=== PATIENT | female | born 2000 | race Caucasian/White ===

== ENCOUNTER 2021-08-15 14:34 | Emergency (ER) | payer BC, SELFPAY ==
--- NOTE | ~2021-08-15 | XR_ITS ---
EXAMINATION: XR chest 2V DATE: 08/15/2021 15:05 INDICATION: Cough and shortness of breath TECHNIQUE: PA and lateral views of the chest were obtained. COMPARISON: None FINDINGS: The lungs are clear with no focal airspace opacities, pulmonary edema, pleural effusion or pneumothor ax. The cardiomediastinal silhouette is normal. Visualized bones and soft tissues are unremarkable. IMPRESSION: 1. No acute cardiopulmonary disease. Reviewed, dictated and finalized at location A. ER OPERATOR
[2021-08-15 14:45] VITALS: BP 122/64; PULSE 93; RESP 20; TEMP 36.7; O2SAT 100
--- NOTE | 2021-08-15 14:46 | ED.URI ---
HPI - URI/Sore Throat General Chief Complaint: Upper Respiratory Infection Stated Complaint: Lung pain Source: patient Mode of arrival: ambulatory Limitations: no limitations History of Present Illness HPI Narrative: 21-year-old female presented for complaint of cough and shortness of breath for 5 days. Endorses hx asthma, using inhaler and nebulizer with minimal relief. Cough is nonproductive, body aches, sinus pressure, and headache. Denies n/v/d/f/c. She vapes, has reduced frequency. Vaccinated for covid, needs booster. Denies sick contacts. MD elicited complaint: cough Related Data Home Medications Medication Instructions Recorded Confirmed albuterol sulfate 0.63 mg INHALATION PRN PRN 08/15/21 08/15/21 Allergies Allergy/AdvReac Type Severity Reaction Status Date / Time No Known Allergies Allergy Verified 08/15/21 14:47 Review of Systems Review of Systems: CONSTITUTIONAL: Endorses malaise, denies chills, sweats, fever. EYES: Denies visual changes, redness, or discharge. ENT: Reports rhinorrhea, congestion, sinus pain, denies otalgia and sore throat. CARDIOVASCULAR: Denies chest pain, palpitations, or edema. RESPIRATORY: Reports cough, post nasal drainage, dyspnea. GASTROINTESTINAL: Endorses diarrhea; Denies abdominal pain, nausea, vomiting SKIN: Denies rash or itching. MUSCULOSKELETAL: Endorses myalgia. NEUROLOGIC: Denies headache. Exam Narrative: GENERAL: Ill-appearing, nontoxic no acute distress. HEAD: Normocephalic EYES: PERRLA, conjunctivae clear ENT: Mucous membranes moist. TM pearly bolden with dull light reflex bilaterally; no tragal tenderness. Oropharynx erythematous without lesions, no drooling, no hoarseness, no trismus, uvula midline. NECK: Supple. No lymphadenopathy CHEST: Clear to auscultation, breath sounds equal. No wheezing, rhonchi, rales, or stridor. No respiratory distress, speaks in full sentences. HEART: Regular rate and rhythm. No murmur heard. SKIN: Warm, dry, no rash. NEURO: Alert and oriented x3. PSYCH: Normal mood and affect Course Course Emergency Course: covid neg Patient is aware of diagnosis, understands and agrees to treatment plan. Anticipatory guidance given. Patient agrees to follow-up as directed and is aware of reasons to seek care at the emergency department. Portions of this record may have been created with voice recognition software Level of Care: Express Care Visit Vital Signs Vital signs: Vital Signs Temperature 98.1 F 08/15/21 14:45 Pulse Rate 93 08/15/21 14:45 Respiratory Rate 20 08/15/21 14:45 Blood Pressure 122/64 08/15/21 14:45 Pulse Oximetry 100 08/15/21 14:45 Temperature 98.1 F 08/15/21 14:45 Pulse Rate 93 08/15/21 14:45 Respiratory Rate 20 08/15/21 14:45 Blood Pressure 122/64 08/15/21 14:45 Pulse Oximetry 100 08/15/21 14:45 reviewed MDM - URI/Sore Throat Differential Diagnosis Differential diagnosis: Likely upper respiratory infection and viral infection Lab Data Labs: Lab Results 08/15/21 Range/Units 14:50 POC SARS CoV-2 Ag Negative (Negative) Imaging Data Attestation: I personally reviewed and interpreted this imaging study as follows: My impression: No acute cardiopulmonary disease. Radiologist's impression: EXAMINATION: XR chest 2V DATE: 08/15/2021 15:05 INDICATION: Cough and shortness of breath TECHNIQUE: PA and lateral views of the chest were obtained. COMPARISON: None FINDINGS: The lungs are clear with no focal airspace opacities, pulmonary edema, pleural effusion or pneumothorax. The cardiomediastinal silhouette is normal. Visualized bones and soft tissues are unremarkable. IMPRESSION: 1. No acute cardiopulmonary disease. Discharge Plan Discharge Clinical Impression: Viral infection, Cough Patient Disposition: Home, Self-Care Condition: Stable Instructions: Antibiotic Form Additional Instructions: Your Rapid COVID test was negative today. If you are symptomat
== END 2021-08-15 15:25 | disposition home or self-care (01) ==
PROVIDERS: Emergency Provider Nurse Practitioner Family
DX: B34.9 Viral infection, unspecified (principal); Z20.822 Contact with and (suspected) exposure to COVID-19
CPT/HCPCS: 71046; 87426; 99213; C9803; G0463

== ENCOUNTER 2021-10-31 22:58 | Emergency (ER) | payer BC, SELFPAY ==
--- NOTE | ~2021-10-31 | XR_ITS ---
EXAMINATION: XR chest 2V DATE: 11/01/2021 01:08 INDICATION: Shortness of breath. TECHNIQUE: Frontal and lateral views of the chest were obtained. COMPARISON: Chest 2 views 08/15/2021 FINDINGS: The chest demonstrates clear lungs without pneumonia, pleural effusion, or pneumothorax. Th e heart size is normal. IMPRESSION: 1. No acute cardiopulmonary disease. Reviewed, dictated and finalized at location A.
[2021-10-31 22:59] VITALS: BP 114/101; PULSE 82; RESP 20; O2SAT 100
--- NOTE | 2021-10-31 23:03 | ECG_ITS ---
Measurements Intervals [place] Rate: 68 P: 23 TN: 126 QRS: 55 QRSD: 89 T: 34 QT: 383 QTc: 409 Interpretive Statements SINUS RHYTHM WITH SINUS ARRHYTHMIA NO PREVIOUS ECG AVAILABLE FOR COMPARISON Electronically Signed On 11-01-2021 8:48:06 CDT by Kennedy Fowler M.D.
[2021-10-31 23:31] VITALS: BP 112/89; PULSE 84; RESP 18; O2SAT 98
[2021-10-31 23:34] VITALS: O2SAT 96
[2021-10-31] MEDS: methylPREDNISolone SOD SUCC 125 MG VIAL IV PUSH (23:42)
[2021-10-31 23:53] LABS: Basophils Percent Auto 0.3 % (0.2-1.2); Eosinophils Percent Auto 9.8 % (0-4.4); Hematocrit 38.9 % (37.0-47.0); Hemoglobin 12.8 g/dL (12.0-15.0); Immature Granulocyte Absolute 0.03 K/mm3 (0.00-0.031); Immature Granulocyte Percent A 0.3 % (0-0.5); Lymphocytes Absolute Auto 1.72 K/mm3 (0.9-3.2); Lymphocytes Percent Auto 17.5 % (18.3-44.2); Mean Corpuscular HGB Conc 32.9 g/dl (32-36); Mean Corpuscular Hemoglobin 31.8 pg (26-34); Mean Corpuscular Volume 96.8 fl (80-100); Mean Platelet Volume 11.4 fl (7.4-10.4); Monocytes Absolute Auto 0.9 K/mm3 (0.1-0.6); Monocytes Percent Auto 9.2 % (2.6-8.5); Neutrophils Absolute Auto 6.2 K/mm3 (1.3-6.7); Neutrophils Percent Auto 62.9 % (45.5-73.1); Platelet Count Result 203 k/mm3 (150-375); Red Blood Count 4.02 M/mm3 (4.2-5.4); Red Cell Distribution Width 12.7 % (11.5-14.5); White Blood Count 9.8 K/mm3 (4.5-10.0)
[2021-10-31] MEDS: ALBUTEROL SULFATE NEB 2.5 MG/0.5 ML INH 15 MG INHALATION (23:57)
[2021-10-31] MEDS: IPRATROPIUM BR 0.02% INH SOLN 0.5 MG/2.5 ML VIAL 1.5 MG INHALATION (23:58)
[2021-10-31 23:59] VITALS: PULSE 71; RESP 12
[2021-11-01] LABS: Alanine Aminotransferase 15 U/L (4-35); Albumin Level 4.6 g/dL (3.5-5.1); Alkaline Phosphatase 67 U/L (38-126); Anion Gap 8 mmol/L (8-16); Aspartate Amino Transferase 25 U/L (14-36); Bilirubin,Total 0.3 mg/dL (0.2-1.3); Blood Urea Nitrogen 5 mg/dL (7-17); Carbon Dioxide 22 mmol/L (22-30); Chloride 109 mmol/L (98-107); Estimated CRCL calculation 85 ml/min; Estimated Glomerular Filt Rate > 60; Glucose 90 mg/dL (65-110); Potassium 3.5 mmol/L (3.4-5.0); Sodium 139 mmol/L (137-145)
--- NOTE | 2021-11-01 00:23 | ED.SOB ---
HPI - SOB/Dyspnea General Chief Complaint: Shortness of Breath/Dyspnea Stated Complaint: Cant breathe Time Seen by Provider: 10/31/21 23:23 Source: patient History of Present Illness HPI Narrative: Patient presents with shortness of breath. Short she had cough congestion for the past few days as well as a history of asthma. She try to manage her symptoms at home however today her symptoms got a lot worse. She attempted nebulized therapies at home without relief so she came to ER for further management. She reports diffuse chest and back pain due to coughing. Reports multiple sick contacts at work with cough and congestion. Denies prior hospitalizations or intubations due to her asthma. Related Data Allergies Allergy/AdvReac Type Severity Reaction Status Date / Time No Known Allergies Allergy Verified 10/31/21 23:02 Review of Systems Review of Systems: CONSTITUTIONAL: Denies fever, chills, or sweats. EYES: Denies visual changes, redness, or discharge. ENT: Denies rhinorrhea, congestion, sore throat, or otalgia. CARDIOVASCULAR: Denies palpitations, or edema. RESPIRATORY: Reports cough and shortness of breath GASTROINTESTINAL: Denies abdominal pain, nausea, vomiting, or diarrhea. GENITOURINARY: Denies dysuria or hematuria. SKIN: Denies rash or itching. MUSCULOSKELETAL: Denies back pain, joint pain, or myalgia. NEUROLOGIC: Denies headache, numbness, dizziness, or weakness. PSYCHIATRIC: Denies anxiety or depression. All systems reviewed & are unremarkable except as noted in HPI and below PMFSH Past Medical History Medical History (Updated 11/01/21 @ 02:36 by Bryant Green MD) Asthma Exam Narrative: GENERAL: Well-appearing, well-nourished, and in no acute distress. HEAD: Normocephalic, atraumatic. EYES: PERRLA and EOMI. ENT: Nares clear, no rhinorrhea or epistaxis. Mucous membranes moist. NECK: Supple. No masses. No JVD CHEST: Increased respiratory effort diffuse wheezing in all lung [place] HEART: Regular rate and rhythm. No murmur heard. Normal peripheral pulses. ABDOMEN: Soft, nontender, nondistended, normal active bowel sounds. EXTREMITIES: Normal range of motion. No edema. SKIN: Warm, dry, no rash. NEURO: No focal deficits. Alert and oriented x3. PSYCH: Normal mood and affect. Course Reevaluation(s) Reevaluation #1: Patient reports feeling much improved however she continues to have instructed expiratory wheezing. Respiratory effort has greatly diminished. Patient thinks she would benefit from another breathing treatment and anticipates she will be comfortable manage her symptoms at home. Date: 11/01/21 Time: 01:31 Reevaluation #2: Patient reports continued improvement in her symptoms repeat exam continues to have inspiratory and expiratory wheezing but improvement in her aeration. Patient feels she can manage her symptoms at home given her improvement. Date: 11/01/21 Time: 02:34 Vital Signs Vital signs: Vital Signs Pulse Rate 82 10/31/21 22:59 Respiratory Rate 20 10/31/21 22:59 Blood Pressure 114/101 H 10/31/21 22:59 Pulse Oximetry 100 10/31/21 22:59 Pulse Rate 104 H 11/01/21 02:36 Respiratory Rate 20 11/01/21 02:36 Blood Pressure 141/72 H 11/01/21 02:23 Pulse Oximetry 100 11/01/21 02:23 MDM - SOB/Dyspnea MDM Narrative Medical decision making narrative: H&P as above, vss, pt looks clinically well, exam with inspiratory and expiratory wheezing, labs clinically unremarkable, img without acute process, additional labs/img considered, symptomatic relief available as needed, on reevaluation pt continues to looks clinically well. Suspect viral process causing asthma exacerbation, dns pneumonia, severe sepsis, severe dehydration hypoxia. plan to tx/monitor as op w/ pcm f/u findings/plan discussed with pt, pt agree/comfortable with plan, return precautions given Lab Data Result diagrams: 10/31/21 23:45 10/31/21 23:45 Labs: Lab Results 10/31/21
[2021-11-01 00:53] VITALS: PULSE 88; RESP 17; O2SAT 100
[2021-11-01 00:58] VITALS: PULSE 89; RESP 12
[2021-11-01 01:41] VITALS: PULSE 92; RESP 20
[2021-11-01] MEDS: IPRATROPIUM BR 0.02% INH SOLN 0.5 MG/2.5 ML VIAL 1.5 MG INHALATION (01:41)
[2021-11-01] MEDS: ALBUTEROL SULFATE NEB 2.5 MG/0.5 ML INH 15 MG INHALATION (01:41)
[2021-11-01 02:23] VITALS: BP 141/72; PULSE 112; RESP 23; O2SAT 100
[2021-11-01 02:36] VITALS: PULSE 104; RESP 20
== END 2021-11-01 03:05 | disposition home or self-care (01) ==
PROVIDERS: Emergency Provider Emergency Medicine
DX: J06.9 Acute upper respiratory infection, unspecified (principal); J45.901 Unspecified asthma with (acute) exacerbation
CPT/HCPCS: 36415; 71046; 80053; 85025; 93005; 94640; 96374; 99285; J2930